=== PATIENT | female | born 1995 | race Two or more races ===

== ENCOUNTER 2024-01-06 09:14 | Observation (INO) | payer MEDICAID ==
[~2024-01-06] VITALS: Ht 157.5 cm; Wt 87.5 kg
[2024-01-06] MEDS ORDERED: PREN-96 PO (09:34)
[2024-01-06 10:11] LABS: Urine Bacteria None Seen /hpf (None Seen)
--- NOTE | 2024-01-06 10:12 | DVH ---
BIOPHYSICAL PROFILE HISTORY: PIH Comparison Study: None TECHNIQUE: Multiple real-time grayscale sonographic images through the gravid uterus of the fetus wi th duplex Doppler color flow and M-mode spectral analysis FINDINGS: BIOPHYSICAL PROFILE: breathing score: 2 movement score: 2 tone score: 2 Quantitative MARYANN score: 2 (MARYANN: 19.3 Cm.) Total score: 8 The cervix is not visualized Single live fetus in breech presentation. heart rate 144 beats per minute. Posterior placenta without previa or abruption IMPRESSION: Biophysical profile score: 8 Positive nuchal cord.
[2024-01-06 10:27] LABS: Basophils # (auto) 0 10 ^3/uL (0-0.2); Basophils % (auto) 0.2 % (0.0-2.0); Eosinophils # (auto) 0 10 ^3/uL (0-0.8); Eosinophils % (auto) 0.1 % (0.0-7.0); Hematocrit 36.7 % (36.0-46.0); Hemoglobin 12.6 g/dL (12.2-16.2); Lymphocytes # (auto) 2.6 10 ^3/uL (0.4-5.4); Lymphocytes % (auto) 25.1 % (10.0-50.0); Mean Corpuscular Hemoglobin 31.9 pg (28.0-32.0); Mean Corpuscular Hgb Conc. 34.3 g/dL (32.0-36.0); Mean Corpuscular Volume 93.1 fL (80.0-100.0); Monocytes # (auto) 0.8 10 ^3/uL (0-1.3); Monocytes % (auto) 7.7 % (0.0-12.0); Neutrophils % (auto) 66.9 % (37.0-80.0); Nucleated Red Blood Cells % 0.3 %; Platelet Count (auto) 147 10^3/uL (140-450); Red Blood Cells 3.94 10^6/uL (4.0-5.20); White Blood Cell 10.5 10^3/uL (4.4-10.8)
[2024-01-06 10:32] LABS: Urine Blood Negative /uL (Negative); Urine Clarity Turbid (Clear); Urine Color Light-Yellow (Yellow); Urine Hyaline Cast FEW /lpf (0 - 2); Urine Protein, UAD TRACE (Negative); Urine Specific Gravity 1.011 (1.001-1.035); Urine Urobilinogen Normal (Negative); Urine WBC 131 /hpf (0 - 5); Urine pH 5.5 (5.0-9.0)
[2024-01-06 10:35] LABS: Protein, Urine 15.2 mg/dL (1-14)
[2024-01-06 10:37] LABS: Creatinine, Urine 58.55 mg/dL (30.0-125.0); Urine Protein/Creatinine Ratio 0.26
[2024-01-06 10:40] LABS: Alanine Aminotransferase 40 U/L (7-40); Alkaline Phosphatase 190 U/L (46-116); Anion Gap 5 (5-15); Aspartate Aminotransferase 27 U/L (13-40); BUN/Creatinine Ratio 14.6 (10.0-20.0); Blood Urea Nitrogen 12 mg/dL (9-23); Calcium 9.2 mg/dL (8.7-10.4); Carbon Dioxide 25 mmol/L (20-31); Chloride 109 mmol/L (98-107); Glucose 94 mg/dL (74-106); INR 0.92 (0.9-1.15); Partial Thromboplastin Time 26.2 SEC (24.5-34.5); Potassium 3.9 mmol/L (3.5-5.1); Prothrombin Time 9.8 sec (9.3-11.8); Sodium 139 mmol/L (136-145)
[2024-01-06 10:41] LABS: Albumin 3.7 g/dL (3.2-4.8); Bilirubin, Total 0.2 mg/dL (0.2-1.0); Total Protein 6.4 g/dL (5.7-8.2)
[2024-01-06 11:19] LABS: Uric Acid 7.3 mg/dL (3.1-7.8)
[2024-01-06 11:56] LABS: Amphetamine Screen, Urine Neg (NEGATIVE); Barbiturate Scree,Urine Neg (NEGATIVE); Benzodiazephine Screen, Urine Neg (NEGATIVE); Cannabinoid Screen, Urine Neg (NEGATIVE); Cocaine Screen, Urine Neg (NEGATIVE); Opiate Scree,Urine Neg (NEGATIVE); Phencyclidine Screen, Urine Neg (NEGATIVE)
[2024-01-06] MEDS: BETAMETHASONE ACET (30mg/5ml) 5ml Vial 6mg/ml IM ONE (12:46)
--- NOTE | 2024-01-06 13:30 | DVHDS2 ---
Physician Discharge Progress N Final Diagnosis: r/o pih Operations or Procedures: Operations or Procedures nst,sono Condition on Discharge: Good Disposition: Home Discharge Instructions: Diet: Consistent carbohydrate Activity: No Restrictions, As Tolerated Medications: na Follow Up Care: Specialist: 1d Discharge Statement: "Patient was advised to return to the ER or call 911 if any headaches, dizziness, shortness of breath, chest pain, abdominal pain, bleeding, fevers, or worsening of medical condition. Patient was counseled about treatment plan, medications, possible side effects, patientverbalized understanding. All questions were answered to the best of my ability. This discharge took greater then 30 minutes in planning, reviewing documentation , counseling the patient, and discussing with other team members." WAN CARO DO Jan 06, 2024 13:30
== END 2024-01-06 14:05 | disposition home or self-care (01) ==
LOC: UNDOADMOB 09:14 → LDRP 09:14
PROVIDERS: ADMIT Obstetrics & Gynecology; ATTEND Obstetrics & Gynecology
DX: O60.03 Preterm labor without delivery, third trimester (principal); Z3A.33 33 weeks gestation of pregnancy; Z79.899 Other long term (current) drug therapy; Z98.890 Other specified postprocedural states
CPT/HCPCS: 36415; 59025; 76818; 80053; 80307; 81001; 81002; 82570; 82948; 82962; 84156; 84550; 85025; 85610; 85730; 94760; 96372; G0378; J0702

== ENCOUNTER 2024-01-08 09:00 | Observation (INO) | payer MEDICAID ==
[~2024-01-08] VITALS: Ht 157.5 cm; Wt 87.5 kg
[~2024-01-08 09:00] MED LIST: PREN-96 PO
[2024-01-08 09:49] LABS: Urine Bacteria None Seen /hpf (None Seen)
--- NOTE | 2024-01-08 10:08 | DVH ---
CLINICAL HISTORY: -induced hypertension. COMPARISON: US BIOPHYSICAL PROFILE on DOS: 01/06/24 TECHNIQUE: biophysical profile was performed. Transabdominal sonographic images of the fetus we re obtained. FINDINGS: The fetus is in breech position. heart rate measures 141 BPM. Amniotic fluid index me asures 14.9 cm. The placenta is posterior in position. Possible nuchal cord again noted. BPP profile is an overall score of 8/8, with 2/2 points for breathing, with at least one episode of breathing over a 30 second duration during a 30 minute observation, 2/2 points for m ovements, with 3 or more discrete body or limb movements, 2/2 points for tone, with one or more episodes of extremity extension with return to flexion, or opening and closing of hand, and 2/ 2 points for amniotic fluid, with at least 1 pocket of amniotic fluid that measures 2 cm in 2 perpend icular planes. IMPRESSION: 1. BPP score of 8/8. 2. Breech position. 3. Possible nuchal cord again noted.
[2024-01-08 10:12] LABS: Creatinine, Urine 98.43 mg/dL (30.0-125.0); Urine Protein/Creatinine Ratio 0.22
[2024-01-08 10:20] LABS: Urine Blood Negative /uL (Negative); Urine Clarity Clear (Clear); Urine Color Light-Yellow (Yellow); Urine Protein, UAD TRACE (Negative); Urine Specific Gravity 1.016 (1.001-1.035); Urine Urobilinogen Normal (Negative); Urine WBC 13 /hpf (0 - 5); Urine pH 5.5 (5.0-9.0)
[2024-01-08 10:44] LABS: Hematocrit 37.2 % (36.0-46.0); Hemoglobin 12.6 g/dL (12.2-16.2); Mean Corpuscular Hemoglobin 31.8 pg (28.0-32.0); Mean Corpuscular Hgb Conc. 33.7 g/dL (32.0-36.0); Mean Corpuscular Volume 94.1 fL (80.0-100.0); Platelet Count (auto) 176 10^3/uL (140-450); Red Blood Cells 3.96 10^6/uL (4.0-5.20); Red Cell Distribution Width 13.9 % (11.8-14.3); White Blood Cell 17.9 10^3/uL (4.4-10.8)
[2024-01-08 10:54] LABS: Basophils % (manual) 0 (0.0-2.0); Blast Cells 0; Eosinophils % (manual) 0 (0-7); Metamyelocytes % 0; Myelocytes % 0; Promyelocytes % 0; Reactive Lymphocytes 0
[2024-01-08 10:56] LABS: Alanine Aminotransferase 106 U/L (7-40); Albumin 3.8 g/dL (3.2-4.8); Alkaline Phosphatase 190 U/L (46-116); Anion Gap 13 (5-15); Aspartate Aminotransferase 84 U/L (13-40); BUN/Creatinine Ratio 16.7 (10.0-20.0); Blood Urea Nitrogen 15 mg/dL (9-23); Calcium 8.9 mg/dL (8.7-10.4); Carbon Dioxide 20 mmol/L (20-31); Chloride 107 mmol/L (98-107); Glucose 114 mg/dL (74-106); Potassium 4.1 mmol/L (3.5-5.1); Sodium 140 mmol/L (136-145); Uric Acid 7.6 mg/dL (3.1-7.8)
[2024-01-08 10:57] LABS: Bilirubin, Total 0.3 mg/dL (0.2-1.0); Total Protein 6.4 g/dL (5.7-8.2)
[2024-01-08 11:07] LABS: Band Neutrophils % (manual) 6; Lymphocytes % (manual) 14 (10.0-50.0); Monocytes % (manual) 4 (0-12); Platelet Estimate Adequate
[2024-01-08 11:08] LABS: RBC Morphology Normal
[2024-01-08 11:10] LABS: Protein, Urine 19.3 mg/dL (1-14)
--- NOTE | 2024-01-08 12:33 | DVHHP2 ---
OB CC & HPI Date Date of Admission: Jan 08, 2024 Patient Identification: : 1 Para: 0 EDC: Feb 23, 2024 EGA: 33wks Chief Complaints: Reason for admission: observation (poih) Indication for induction: medical complication Admission Nurse Assessment Rev: No History of Present Complaints pt is admitted for pih,baby is breech and shge has been observed for the last 2 days for pih wk up on out pt basis .her bp was 170/100 and labs have worsened lfts have gone upsubseq pt is being transfrred.pt rec 2 [facility] in the last 2 days Past Medical History Cardiac: No pertinent Hx Pulmonary: No pertinent Hx Central Nervous System: No pertinent Hx GI: No pertinent Hx Hemotology/Oncology: No pertinent Hx Hepatobiliary: No pertinent Hx Psychiatric: No pertinent Hx Musculoskeletal: No pertinent Hx Rheumotologic: No pertinent Hx Infectious Disease: No peritnent Hx ENT: No pertinent Hx Renal/: No pertinent Hx Endocrine: No pertinent Hx Dermatology: No pertinent Hx Past Surgical History: No pertinent Hx OB History OB History Care: Good Care Ultrasounds: Normal mid trimester US Obstetrical Complications: Gestational Diabetes Medical Complications: None Allergies: Coded Allergies: NO KNOWN ALLERGIES (Unverified , 01/06/24) Home Meds Reported Medications Vit W/ Ferrous Fumara ( One Daily) Daily Tab, 1 TAB PO DAILY, #90 TAB 3 Refills 01/06/24 Family & Social History Family/Social History Blood Type: Unknown RPR/VDRL: Negative GBS Status: Unknown HBsAG: Negative Review of Systems Constitutional: No symptom reported Ears, Nose, & Throat: No symptom reported Eyes: No symptom reported Pulmonary/Respiratory: No symptom reported Cardiovascular: No symptom reported Gastrointestinal: No symptom reported Genitourinary: No symptom reported Musculoskeletal: No symptom reported Skin: No symptom reported Psychiatric: No symptom reported Endocrine: No symptom reported Hemotologic/Lymphatic: No symptom reported OB Admission Exam Physical Exam HEENT: TMs Normal, Fontanelles Normal, Nasal Mucosa Normal, Eyes non-injected, Oropharynx Normal, PERRLA, Moist Membranes, EOMI Heart: Rhythm Normal Lungs: Clear Abdomen: Non tender Extremities: Normal Reflexes: Normal Cervical Dilatation: Fingertip Effacement: 25% Station: -3 Membranes: Intact Heart Rate: 130's Accelerations: Accelerations Present Decelerations: No Decelerations Short Term Variability: Present Care Home Variability: Average (6-25) Contractions on Admission: None OB Plan Plan Admitting Diagnosis: iup at 33wks with pih,ptl,breech gdm Other Plan: transfer to [facility] via air ,spoke to dr tyson who accepted transfer and dr zamudio will manage WAN CARO DO Jan 08, 2024 12:33
--- NOTE | 2024-01-08 12:34 | DVHTS ---
Transfer Summary Transfer Summary Date of Admission Jan 08, 2024 at 11:43 Date of Transfer: Jan 08, 2024 Transfer Diagnosis pih,ptl,gdm Brief Hx & Hospital Course: see h and p Transfer to: [facility] Discharge Instructions: via air Transfer Status stable Date of Service: Jan 08, 2024 Billing Provider: WAN CARO DO Common Visit Codes: [id number] INP/OBS CARE (HIGH) WAN CARO DO Jan 08, 2024 12:34
--- NOTE | 2024-01-08 12:41 | DVHDS2 ---
Physician Discharge Progress N Final Diagnosis: pih,gdm,ptl Operations or Procedures: Operations or Procedures nst,sono Condition on Discharge: Higher Level of Care Disposition: Acute Care Facility Discharge Instructions: Diet: Consistent carbohydrate, See Comment (npo) Activity: Bed rest Medications: na Follow Up Care: Specialist: to [facility] Discharge Statement: "Patient was advised to return to the ER or call 911 if any headaches, dizziness, shortness of breath, chest pain, abdominal pain, bleeding, fevers, or worsening of medical condition. Patient was counseled about treatment plan, medications, possible side effects, patientverbalized understanding. All questions were answered to the best of my ability. This discharge took greater then 30 minutes in planning, reviewing documentation, counseling the patient, and discussing with other team members." WAN CARO DO Jan 08, 2024 12:41
[2024-01-08 12:44] LABS: 24 Hr. Total Protein, Urine 501.8 mg/24 Hr (<149.1)
[2024-01-08 12:46] LABS: Body Surface Area 1.88; Creatinine Clearance, Urine 181.71 mL/min (75-115); Creatinine, Urine 98.43 mg/dL (30.0-125.0)
== END 2024-01-08 14:08 | disposition home or self-care (01) ==
LOC: UNDOADMOB 09:00 → LDRP 09:00 → UNDOADMOB 09:05 → LDRP 09:05 → INTOOBSV 11:43 → OBSVTOIN 11:43 → UNDODISIN 14:08 → UNDODISOB 14:08
PROVIDERS: ADMIT Obstetrics & Gynecology; ATTEND Obstetrics & Gynecology
DX: O13.3 Gestational [pregnancy-induced] hypertension without significant proteinuria, third trimester (principal); O24.419 Gestational diabetes mellitus in pregnancy, unspecified control; O60.03 Preterm labor without delivery, third trimester; O32.1XX0 Maternal care for breech presentation, not applicable or unspecified; Z3A.33 33 weeks gestation of pregnancy; Z79.899 Other long term (current) drug therapy; Z98.890 Other specified postprocedural states
CPT/HCPCS: 36415; 59025; 76818; 80053; 81001; 81002; 82570; 82575; 82948; 82962; 84156; 84550; 85007; 85027; 94762; G0378